=== PATIENT | female | born 1965 | race American Indian/Alaskan Native ===

== ENCOUNTER 2018-07-16 15:20 | Emergency (ER) | payer MEDICAID, MEDICARE ==
[2018-07-16] MEDS ORDERED: BICILLIN L-A IM ONE (17:28)
[2018-07-16] MEDS ORDERED: TORADOL IM ONE (17:28)
--- NOTE | 2018-07-16 17:28 | Emergency Department Report ---
ED ENT HPI - General Chief complaint: Dental/Oral Stated complaint: ABSCESS Time Seen by Provider: 07/16/18 17:27 Source: patient Mode of arrival: Ambulatory Limitations: No Limitations - History of Present Illness Initial comments: Patient is a 53 year-old female who comes in today complaining of dental pain. She states it's her lower mandibular area from where she is having the pain. She has not seen a dentist. She is afebrile. Controlling secretions. And no trismus. NO FEVER PMH NONE PSH NONE RX NONE MD complaint: tooth pain -: Sudden Consistency: constant Improves with: none Worsens with: none Context- Dental: history of dental caries Associated Symptoms: toothache - Related Data Previous Rx's Medication Instructions Recorded Last Taken Type Amoxicillin [Trimox CAP] 500 mg PO BID #20 capsule 07/16/18 Unknown Rx Chlorhexidine Mouthwash [Peridex] 10 ml MM BID #1 bottle 07/16/18 Unknown Rx traMADol [Ultram] 50 mg PO Q6HR PRN #10 tablet 07/16/18 Unknown Rx Allergies Allergy/AdvReac Type Severity Reaction Status Date / Time No Known Allergies Allergy Unverified 07/16/18 15:22 ED Dental HPI - General Chief complaint: Dental/Oral Stated complaint: ABSCESS Time Seen by Provider: 07/16/18 17:27 Source: patient Mode of arrival: Ambulatory Limitations: No Limitations - Related Data Previous Rx's Medication Instructions Recorded Last Taken Type Amoxicillin [Trimox CAP] 500 mg PO BID #20 capsule 07/16/18 Unknown Rx Chlorhexidine Mouthwash [Peridex] 10 ml MM BID #1 bottle 07/16/18 Unknown Rx traMADol [Ultram] 50 mg PO Q6HR PRN #10 tablet 07/16/18 Unknown Rx Allergies Allergy/AdvReac Type Severity Reaction Status Date / Time No Known Allergies Allergy Unverified 07/16/18 15:22 ED Review of Systems ROS: Stated complaint: ABSCESS Other details as noted in HPI Comment: All other systems reviewed and negative Constitutional: denies: chills, fever Eyes: denies: vision change ENT: as per HPI, dental pain Respiratory: denies: cough Cardiovascular: denies: palpitations Endocrine: denies: intolerance to cold Gastrointestinal: denies: abdominal pain Genitourinary: denies: urgency Musculoskeletal: denies: back pain Skin: denies: lesions Neurological: denies: headache Psychiatric: denies: anxiety Hematological/Lymphatic: denies: easy bleeding ED Past Medical Hx - Past Medical History Previous Medical History?: No - Surgical History Past Surgical History?: No - Family History Family history: no significant - Social History Smoking Status: Current Every Day Smoker Substance Use Type: None - Medications Home Medications: Home Medications Medication Instructions Recorded Confirmed Last Taken Type Amoxicillin [Trimox CAP] 500 mg PO BID #20 capsule 07/16/18 Unknown Rx Chlorhexidine Mouthwash [Peridex] 10 ml MM BID #1 bottle 07/16/18 Unknown Rx traMADol [Ultram] 50 mg PO Q6HR PRN #10 tablet 07/16/18 Unknown Rx ED Physical Exam - General Limitations: No Limitations General appearance: alert - Head Head exam: Present: atraumatic - Eye Eye exam: Present: normal appearance, PERRL - ENT ENT exam: Present: normal exam, mucous membranes moist - Expanded ENT Exam Expanded Mouth exam: Absent: drooling, trismus, muffled voice, tongue normal, tongue elevation Teeth exam: Present: dental caries 1 - Other (CARIES WITH GINGIVAL DISEASE) - Neck Neck exam: Present: normal inspection ED Course Vital Signs 07/16/18 15:56 Temperature 98.1 F Pulse Rate 73 Respiratory 16 Rate Blood Pressure 188/99 O2 Sat by Pulse 99 Oximetry ED Medical Decision Making - Medical Decision Making ABC INTACT NO TRISMUS TAKING PO NO LUDWIGS NO ABSCESS NO FEVER MEDICATED IN ER DC HOME W DC INSTRUCTION WILL GIVE REFERRALS TO LOCAL DENTISTS Vital Signs 07/16/18 15:56 Temperature 98.1 F Pulse Rate 73 Respiratory 16 Rate Blood Pressure 188/99 O2 Sat by Pulse 99 Oximetry Critical care attestation.: If time is entered above; I have spent that time in minutes in the direct care of this critically ill patient, excluding procedure time. ED Disposition Clinical Impression: Pain, dental, Dental caries, Gingivitis Disposition: DC-01 TO HOME OR SELFCARE Is pt being admited?: No Does the pt Need Aspirin: No Condition: Stable Instructions: Dental Caries (ED), Toothache (ED) Additional Instructions: HYDRATE WELL WITH WATER MOTRIN OR TYLENOL FOR PAIN MED ORDERED TODAY SEE [facility] Prescriptions: Chlorhexidine Mouthwash [Peridex] 10 ml MM BID #1 bottle Amoxicillin [Trimox CAP] 500 mg PO BID #20 capsule traMADol [Ultram] 50 mg PO Q6HR PRN #10 tablet PRN Reason: Pain Referrals: [facility] [Outside] - 3-5 Days Time of Disposition: 17:34
[2018-07-16 18:08] VITALS: BP 166/109
== END 2018-07-16 18:06 | disposition home or self-care (01) ==
LOC: ED 15:20
DX: K02.9 Dental caries, unspecified (principal); K05.00 Acute gingivitis, plaque induced; F17.200 Nicotine dependence, unspecified, uncomplicated
CPT/HCPCS: 96372; 99282; J0561; J1885